=== PATIENT | female | born 1965 | race Caucasian/White ===

== ENCOUNTER 2023-11-17 11:32 | Outpatient (CLI) | payer OTHER, SELFPAY ==
--- NOTE | 2023-11-17 11:30 | CRLHL7_ITS ---
For Patients: As a result of the Century Cures Act, medical imaging exams and procedure reports are released immediately into your electronic medical record. You may view this report before your referring provider. If you have questions, please contact your health care provider. BILATERAL SCREENING MAMMOGRAM WITH COMPUTER-AIDED DETECTION AND TOMOSYNTHESIS TECHNIQUE: CC and MLO views were obtained. These mammographic images have been obtained using full-field digital technique. These mammographic images were interpreted with the benefit of computer-aided detection. Breast Tomosynthesis was used in this interpretation. COMPARISON FILM: 06/06/20, 06/01/18, 02/20/17. FINDINGS: The breasts are heterogeneously dense, which may obscure small masses IMPRESSION: There is no radiographic evidence for malignancy. ASSESSMENT: BI-RADS Category 1: Negative RECOMMENDATION: Routine screening mammogram in 1 year. A lay language report of this examination will be provided to the patient. Gilbert Houston M.D. Diagnostic Radiologist [email or web address] ELPIDIO/Dictated by: Gilbert Houston MD @ 11/25/2023 12:21:00 PM (Electronically Signed)
--- OUTSIDE RECORDS SUMMARY | 2023-11-17 11:35 | XMS_ITS | Encounter Summary ---
Author Organization [facility] Address [address] [place] [address] Care Team Providers Care Detention Deputy Name Role Phone Leigh Tuttle PA-C Primary Care Pr ovider Leigh Tuttle PA-C Unavailable Mino Galvez DO Unavailable [phone] Encounter Details Date Type Department Care Team (Late st Contact Info) Description 07/19/2022 [facility] [address] [place] [address] Arlette Saldivar Social History Tobacco Use Types Packs/Day Years Used Date Smoking Tobacco: Former Cigarettes 0.5 8 0 09/12/1989 - 09/12/1997 Smokeless Tobacco: Never Alcohol Use Standard Drinks/Week Comments Yes 0 (1 standard drink = 0.6 oz pur e alcohol) 7 drinks per week Social Connection and Isolat ion Panel [NHANES] Answer Date Recorded In a typical week, how many times do you talk on the phone with family, friends, or neighbors? More than three times a week 07/02/2022 How often do you get togethe r with friends or relatives? More than three times a week 07/02/2022 How often do you attend chur ch or protestant services? Never 07/02/2022 Do you belong to any clubs o r organizations such as jewish groups, unions, fraternal or athletic groups, or school groups? No 07/02/2022 Attends Club or Organization Meetings Not on vickey e 07/02/2022 Are you , , di vorced, , never , or living with a partner? 07/02/2022 AUDIT-C Answer Date Recorded Frequency of Alcohol Consumption Not on file 07/02/2022 Q2: How many drinks containi ng alcohol do you have on a typical day when you are drinking? 3 or 4 07/02/2022 Q3: How often do you have si x or more drinks on one occasion? Less than monthly 07/02/2022 Overall Financial Resource Strain (CARDIA) Answe r Date Recorded How hard is it for you to pa y for the very basics like food, housing, medical care, and heating? Not hard at all 07/02/2022 PHQ-2 Answer Date Recorded PHQ-2 Score 0 07/03/2022 [facility] - Occupational Stress Questionnaire Answer Date Recorded Do you feel stress - tense, restless, nervous, or anxious, or unable to sleep at night because your mind is troubled all the time - these days? To some extent 07/02/2022 Exercise Vital Sign Answer Date Recorde d Days of Exercise per Week Not on file 2022 On average, how many minutes do you engage in exercise at this level? 20 min 07/02/2022 Hunger Vital Sign Answer Date Recorded Within the past 12 months, y ou worried that your food would run out before you got the money to buy more. Never true 07/03/19 23 Ran Out of Food in the Last Year Not on file 07/02/2022 PRAPARE - Transportation Answer Date Re corded In the past 12 months, has l ack of transportation kept you from medical appointments or from getting medications? No 10/2022 In the past 12 months, has l ack of transportation kept you from meetings, work, or from getting things needed for daily living? No 07/02/2022 Housing Stability Vital Sign Answer Noe e Recorded In the last 12 months, was t here a time when you were not able to pay the mortgage or rent on time? No 07/02/2022 Number of Places Lived in the Last Year Not on f ile 07/02/2022 In the last 12 months, was t here a time when you did not have a steady place to sleep or slept in a retirement (including now)? No 07/02/2022 Sex and Gender Information Value Date Recorded Sex Assigned at Female 05/25/2021 9:19 AM CDT Gender Identity Female 05/25/2021 9:19 AM CDT Sexual Orientation Straight 05/25/2021 9: 19 AM CDT COVID-19 Exposure Response Date Recorded In the last 10 days, have yo u been in contact with someone who was confirmed or suspected to have Coronavirus/COVID-19? No / Unsure 07/15/2022 3:04 PM CDT documented as of this encounter Plan of Treatment Not on file documented as of this encounter Visit Diagnoses Not on filedocumented in this encounter Additional Health Concerns Assessment Noted Time PHQ-9 Depression Total Score: 0 02/11/20 17 10:14 AM CORPORATE COUNSELOR documented as of this encounter Care Teams Detention Deputy Relationship Specialty Start Date End Date Leigh Tuttle PA-C [address] [place] [address] PCP - General Physician Spool Maker 10/21/14 Leigh Tuttle PA-C [address] [place] [address] Assigned PCP 07/06/22 [place] [id number] ARLETTE WEEMS, [address] [address] Assigned Musculoskeletal Provider 10/17/23 documented as of this encounter
--- OUTSIDE RECORDS SUMMARY | 2023-11-17 11:35 | XMS_ITS | Encounter Summary ---
Author Organization [facility] Address [address] [place] [address] Care Team Providers Care Personnel Supervisor Name Role Phone Leigh Tuttle PA-C Primary Care Pr ovider Leigh Tuttle PA-C Unavailable Encounter Details Date Type Department Care Team (Latest Contact Info) Description 10/08/2023 Travel Social History Tobacco Use Types Packs/Day Years [...] often do you attend chur ch or pentecostalism services? Never 07/02/2022 Do you belong to any clubs o r organizations such as gnosticist groups, unions, fraternal or athletic groups, or [...] PHQ-2 Answer Date Recorded PHQ-2 Score 0 09/12/2023 [facility] [place] [facility] - Occupational Stress [...] place to sleep or slept in a fpc (including now)? No 07/02/2022 Adolescent Education Answer Date Record ed Getting School Help Needed Not on file 12/02 Interpersonal Safety Answer Date Record ed Do you feel physically and e motionally safe where you currently live? Yes 07/22/2023 Within the past 12 months, h ave you been hit, slapped, kicked or otherwise physically hurt by someone? No 07/22/2023 Within the past 12 months, h ave you been humiliated or emotionally abused in other ways by your partner or ex-partner? No 07/22/2023 Sex and Gender Information Value Date Recorded Sex Assigned at Female 05/25/2021 9:19 AM CDT Gender Identity Female 05/25/2021 9:19 AM CDT Sexual Orientation Straight 05/25/2021 9: 19 AM CDT documented as of this encounter Plan of Treatment Not on file documented as of this encounter Visit Diagnoses Not on filedocumented in this encounter Additional Health Concerns Assessment Noted Time PHQ-9 Depression Total Score: 0 09/11/19 24 9:12 AM CDT documented as of this encounter Care Teams Personnel Supervisor Relationship Specialty Start Date End Date Leigh Tuttle PA-C [address] [place] [address] PCP - General Physician Life Insurance Specialist 10/21/14 Leigh Tuttle PA-C [address] [place] [address] Assigned PCP 07/06/22 documented as of this encounter
--- OUTSIDE RECORDS SUMMARY | 2023-11-17 11:35 | XMS_ITS | Encounter Summary ---
Author Organization [facility] Address [address] [place] [address] Care Team Providers Care Woods Superintendent Name Role Phone Leigh Tuttle PA-C Primary Care Pr ovider Leigh Tuttle PA-C Unavailable Encounter Details Date Type Department Care Team (Latest Contact Info) Description 09/23/2023 Travel Social History Tobacco Use Types Packs/Day [...] often do you attend chur ch or baptist services? Never 07/02/2022 Do you belong to any clubs o r organizations such as yazdanism groups, unions, fraternal or athletic groups, or [...] Answer Date Recorded PHQ-2 Score 0 09/12/2023 [facility] [place] [facility] - Occupational Stress [...] place to sleep or slept in a half-way (including now)? No 07/02/2022 Adolescent Education Answer [...] documented as of this encounter Care Teams Woods Superintendent Relationship Specialty Start Date End Date Leigh Tuttle PA-C [address] [place] [address] PCP - General Physician Telegrapher Agent 10/21/14 Leigh Tuttle PA-C [address] [place] [address] Assigned PCP 07/06/22 documented as of this encounter
--- OUTSIDE RECORDS SUMMARY | 2023-11-17 11:35 | XMS_ITS | Encounter Summary ---
Author Organization [facility] Address [address] [place] [address] Care Team Providers Care Press Tender Short Goods Name Role Phone Leigh Tuttle PA-C Primary Care Pr ovider Leigh Tuttle PA-C Unavailable Encounter Details Date Type Department Care Team (Latest Contact Info) Description 10/15/2023 Travel Social History Tobacco Use Types Packs/Day [...] often do you attend chur ch or christian services? Never 07/02/2022 Do you belong to any clubs o r organizations such as mu-ism groups, unions, fraternal or athletic groups, or [...] Answer Date Recorded PHQ-2 Score 0 09/12/2023 [facility] [place] [facility] Occupat ional Health - Occupational Stress [...] place to sleep or slept in a nursing home (including now)? No 07/02/2022 Adolescent Education Answer [...] documented as of this encounter Care Teams Press Tender Short Goods Relationship Specialty Start Date End Date Leigh Tuttle PA-C [address] [place] [address] PCP - General Physician Fur Trimmer 10/21/14 Leigh Tuttle PA-C [address] [place] [address] Assigned PCP 07/06/22 documented as of this encounter
--- OUTSIDE RECORDS SUMMARY | 2023-11-17 11:35 | XMS_ITS | Encounter Summary ---
Author Organization [facility] Address [address] [place] [address] Care Team Providers Care Supervisor Keymodule Assembly Name Role Phone Leigh Tuttle PA-C Primary Care Pr ovider Leigh Tuttle PA-C Unavailable Reason for Visit * Rehab Therapy Physical Therapy (Routine: Next available opening) - Referral NOT Required Specialty Diagnoses / Procedures Referred By Johnny olea Referred To Contact Physical Therapy Diagnoses Primary osteoarthritis of right hip Femoroacetabular impingement of right hip [address] [address] Referral ID Status Reason Start Date Expiration Date V isits Requested Visits Authorized [id number] Referral NOT Required 10/07/2023 02/24/2024 365 365 Encounter Details Date Type Department Care Team (Latest Contact Info) Description 10/15/2023 11:20 AM CDT Therapy Visit [address] [place] [address] Zac Morris, PT [address] [id number] Primary osteoarthritis of right hip (Primary Dx); Femoroacetabular impingement of right hip Social History Tobacco Use Types Packs/Day Years [...] 07/02/2022 How often do you attend chur or tenriism services? Never 07/02/2022 Do you belong to any clubs o r organizations such as muslim groups, unions, fraternal or athletic groups, or [...] Answer Date Recorded PHQ-2 Score 0 09/12/2023 [facility] - Occupational [...] place to sleep or slept in a [facility] (including now)? No 07/02/2022 Adolescent Education Answer [...] documented as of this encounter Visit Diagnoses Diagnosis Primary osteoarthritis of right hip- Primary Primary localized osteoarthrosis, pelvic region and thigh Femoroacetabular impingement of right hip Enthesopathy of hip region documented in this encounter Additional Health Concerns Assessment Noted Time PHQ-9 Depression Total Score: 0 09/11/19 24 9:12 AM CDT documented as of this encounter Care Teams Supervisor Keymodule Assembly Relationship Specialty Start Date End Date Leigh Tuttle PA-C [address] [place] [address] PCP - General Physician Warehouse Receiver 10/21/14 Leigh Tuttle PA-C [address] [place] [address] Assigned PCP 07/06/22 documented as of this encounter
--- OUTSIDE RECORDS SUMMARY | 2023-11-17 11:35 | XMS_ITS | Referral Summary ---
Author Organization [facility] Address [address] [place] [address] Care Team Providers Care Cattle Dipper Name Role Phone Leigh Tuttle PA-C Primary Care Pr ovider Leigh Tuttle PA-C Unavailable Mino Galvez DO Unavailable [phone] Encounters Date Type Department Care Team Description 11/08/2023 Travel 11/08/2023 9:20 AM CDT Office Visit [address] [address] Ethel De Jesus MD Yeo, Albert, MD Primary osteoarthritis of right hip (Primary Dx); Hip pain, right; Femoroacetabular impingement of right hip 11/04/[address] [address] Adarsh Lopez MD Appt Scheduled 10/15/2023 Travel 10/15/2023 11:20 AM CDT Therapy Visit [facility] [address] [place] [address] Zac Morris, PT Primary osteoarthritis of right hip (Primary Dx); Femoroacetabular impingement of right hip 10/08/2023 Travel 10/08/2023 10:40 AM CDT Therapy Visit [facility] [place] [id number] [place] [address] [address] [place] [address] Zac Morris, PT Primary osteoarthritis of right hip; Femoroacetabular impingement of right hip 09/23/2023 Travel 09/23/2023 10:00 AM CDT Office Visit [facility] [place] [address] [facility] [address] [place] [address] Leigh Mondragon ra, PA-C Sheehan, Andrew, DO Primary osteoarthritis of right hip (Primary Dx); Femoroacetabular impingement of right hip 09/16/2023 MyC Medical Advice [address] [address] Leigh Mondragon ra, PA-C Hip pain, right (Primary Dx) 09/12/2023 11:20 AM CDT Ancillary Procedure [address] [address] Leigh Mondragon ra, PA-C Hip pain, right 09/12/2023 11:00 AM CDT Virtual Visit [address] [address] Leigh Mondragon ra, PA-C Hip pain, right (Primary Dx) from Last 3 Months Allergies Active Allergy Reactions Criticality Noted Date Comments Estradiol 11/08/2023 Medications Medication Sig Dispensed Refills Start Date End Date Status cyclobenzaprine (FLEXERIL) 5 MG tabletIndications:Hip pain, right Take 1 tablet (5 mg) by mouth 3 times daily as needed for muscle spasms 30 tablet 07/22/2023 Active Additional Information Patient not taking.Reported on 11/08/2023 progesterone (PROMETRIUM) 200 MG capsule Take 200 mg by mouth daily. 10/15/2023 Active thyroid (ARMOUR) 60 MG tablet Take 60 mg by mouth daily. Active estradiol (CLIMARA) 0.05 MG/24HR weekly patch Place 1 patch onto the skin once a week. Active diclofenac (VOLTAREN) 75 MG EC tabletIndications:Hip pain, right,Primary osteoarthritis of right hip,Femoroacetabular impingement of right hip Take 1 tablet (75 mg) by mouth 2 times daily as needed for moderate pain. 60 tablet 11/08/2023 Active Active Problems Problem Noted Date Diagnosed Date Primary osteoarthritis of right hip 10/08/2023 Femoroacetabular impingement of right hip 2023 Chronic right-sided low back pain without sciati ca 10/10/2022 Adhesive capsulitis of right shoulder 03/02/2018 Cervical radiculopathy 03/02/2018 Subclinical hypothyroidism 06/23/2015 Urinary incontinence 04/11/2010 Frequency of urination and polyuria 04/11/2010 Microscopic hematuria 04/11/2010 Recurrent HSV (herpes simplex virus) 08/24/2007 Resolved Problems Problem Noted Date Diagnosed Date Resolved Date CARDIOVASCULAR SCREENING; LD L GOAL LESS THAN 160 12/24/2009 06/04/2021 Immunizations Name Administration Dates Next Due COVID-19 MONOVALENT 12+ (Pfizer) 02/06/2021,05/26,05/19/2020 Hepatitis A (ADULT 19+) 03/10/2012 Hepatitis B, Adult 03/10/2012 Influenza (IIV3) PF 11/13/2009 Influenza, seasonal, injectable, PF 03/10/2012 TDAP (Adacel,Boostrix) 02/25/2012,05/08/2010 Social History Tobacco Use Types Packs/Day Years Used Date Smoking Tobacco: Former Cigarettes 0.5 8 0 09/12/1989 - 09/12/1997 Smokeless Tobacco: Never Tobacco Cessation:Counseling Given: Yes Alcohol Use Standard Drinks/Week Comments Yes 0 [...] week 07/02/2022 How often do you attend [facility] or hoahaoism services? Never 07/02/2022 Do you belong to any clubs o r organizations such as orthodox groups, unions, fraternal or athletic groups, or [...] Answer Date Recorded PHQ-2 Score 0 09/12/2023 [facility] - Occupational Stress Questionnaire Answer Date Recorded [...] place to sleep or slept in a penitentiary (including now)? No 07/02/2022 Adolescent Education Answer [...] Orientation Straight 05/25/2021 9: 19 AM CDT Last Filed Vital Signs Vital Sign Reading Time Taken Comments Blood Pressure 114/78 11/08/2023 9:06 AM CDT Pulse 72 07/22/2023 10:46 AM CDT Temperature 36.6 ??C (97.8 ??F) 07/22/2023 10:46 AM C DT Respiratory Rate 18 07/22/2023 10:46 AM CDT Oxygen Saturation 99% 07/22/2023 10:46 AM CDT Inhaled Oxygen Concentration - - Weight 64.4 kg (142 lb) 11/08/2023 9:06 AM CDT Height 170.2 cm (5' 7) 11/08/2023 9:06 AM CDT Body Mass Index 22.24 11/08/2023 9:06 AM CDT Plan of Treatment Not on file Procedures Procedure Name Priority Date/Time Associated Diagnosis Comments AK ARTHROCENTESIS ASPIR&/INJ MAJOR JT/BURSA W/US Routine 09/23/2023 10:34 AM CDT Primary osteoarthritis of right hip Femoroacetabular impingement of right hip XR PELVIS AND HIP BILATERAL 2 VIEWS Routine 09/12/2023 11:24 AM CDT Hip pain, right COLONOSCOPY Routine 10/02/2022 12:28 PM CDT COMPREHENSIVE METABOLIC PANEL Routine 07/03/2022 11:48 AM CDT Screening for diabetes mellitus HEPATITIS C SCREEN REFLEX TO HCV RNA QUANT AND GENOTYPE Routine 07/03/2022 11:48 AM CDT Need for hepatitis C screening test TSH WITH FREE T4 REFLEX Routine 07/03/2022 11:48 AM CDT Screening for thyroid disorder LIPID PROFILE Routine 07/03/2022 11:48 AM CDT Screening, lipid MA SCREENING BILATERAL W/ ARNALDO Routine 05/27/2022 11:47 AM CDT Visit for screening mammogram HIV ANTIGEN ANTIBODY COMBO Routine 07/28/2017 8:53 AM CDT Screening for HIV (human immunodeficiency virus) PAP IMAGED THIN LAYER SCREEN Routine 02/10/2017 10:35 AM GOLDBEATER Encounter for gynecological examination without abnormal finding HPV HIGH RISK TYPES DNA CERVICAL Routine 02/10/2017 10:30 AM GOLDBEATER Encounter for gynecological examination without abnormal finding from Last 3 Months or Most Recently Relevant to Health Maintenance Results * AK ARTHROCENTESIS ASPIR&/INJ MAJOR JT/BURSA W/US (09/23/2023 10:34 AM CDT) Narrative Mino Galvez DO - 09/23/2023 10:34 AM CDT Mino Galvez DO ? 09/23/2023 12:55 PM Large Joint Injection/Arthocentesis: R hip joint Date/Time: 09/23/2023 10:34 AM Performed by: Mino Galvez DO Authorized by: Mino Galvez DO ?? Indications: ??Pain and osteoarthritis Needle Size: ??22 G Guidance: ultrasound ?? Approach: ??Anterior Location: ??Hip Site: ??R hip joint Medications: ??6 mg betamethasone acet & sod phos 6 (3-3) MG/ML; 5 mL lidocaine 1 %; 2 mL ROPivacaine 5 MG/ML Medications comment: ??1ml of 8.4% Sodium Bicarbonate solution was used to buffer the local numbing agent for today's injection Outcome: ??Tolerated well, no immediate complications Procedure discussed: discussed risks, benefits, and alternatives ?? Consent Given by: ??Patient Timeout: timeout called immediately prior to procedure ?? Prep: patient was prepped and draped in usual sterile fashion ?? Ultrasound was used to ensure safe and accurate needle placement and injection. Ultrasound images of the procedure were permanently stored. Mino Galvez DO PROCEDURE/MINOR SURG ICAL ORDERABLES * XR Pelvis and Hip Bilateral 2 Views (09/12/2023 11:24 AM CDT) Anatomical Region Laterality Modality Hip, Abdomen/Pelvis Bilateral Computed Rad iography Impressions 09/12/2023 12:49 PM CDT IMPRESSION: Anatomic alignment of each hip. No acute displaced hip fracture. Mild bilateral hip joint space narrowing. No acute displaced pelvic fracture. Transitional lumbosacral segment. Degenerative changes lower lumbar spine. JOEY AMBROCIO MD SYSTEM ID: ??[id number] Narrative 09/12/2023 12:49 PM CDT PELVIS AND HIP BILATERAL 2 VIEWS DATE/TIME: 09/12/2023 11:24 AM INDICATION: Hip pain. COMPARISON: None available. Procedure Note Joey Ambrocio MD - 09/12/2023 PELVIS AND HIP BILATERAL 2 VIEWS DATE/TIME: 09/12/2023 11:24 AM INDICATION: Hip pain. COMPARISON: None available. IMPRESSION: Anatomic alignment of each hip. No acute displaced hip fracture. Mild bilateral hip joint space narrowing. No acute displaced pelvic fracture. Transitional lumbosacral segment. Degenerative changes lower lumbar spine. JOEY AMBROCIO MD SYSTEM ID: [id number] Leigh Tuttle PA-C IMG DIAG NOSTIC IMAGING ORDERABLES * COLONOSCOPY (10/02/2022 12:28 PM CDT) [facility] Patient Name: Chandrika Hoffmann ?Procedure Date: 10/02/2022 12:28 PM ? Date of : 1965 ? Admit Type: Outpatient Age: 57 ? Gender: Female Attending MD: NANCY ORTEGA MD, ??Total Sedation Time: 16_minutes continuous bedside 1:1 Instrument Name: 224 - Adult Colonoscope Procedure: ?Colonoscopy Indications: ?Screening for colorectal malignant neoplasm Providers: ?NANCY ORTEGA MD (Doctor) Referring MD: ? GAETANO MCCAULEY (Referring MD) Medicines: ?Midazolam 3 mg IV, Fentanyl 150 micrograms IV, ?Ondansetron 4 mg IV Complications: ?No immediate complications. Procedure: ?Pre-Anesthesia Assessment: ?- Prior to the procedure, a History and Physical ?was performed, and patient medications and ?allergies were reviewed. The patient is competent. ?The risks and benefits of the procedure and the ?sedation options and risks were discussed with the ?patient. All questions were answered and informed ?consent was obtained. Patient identification and ?proposed procedure were verified by the physician ?in the procedure room. Mental Status Examination: ?alert and oriented. CV Examination: normal. ?Prophylactic Antibiotics: The patient does not ?require prophylactic antibiotics. Prior ?Anticoagulants: The patient has taken no ?anticoagulant or antiplatelet agents. ASA Grade ?Assessment: II - A patient with mild systemic ?disease. After reviewing the risks and benefits, ?the patient was deemed in satisfactory condition to ?undergo the procedure. The anesthesia plan was to ?use moderate sedation / analgesia (conscious ?sedation). Immediately prior to administration of ?medications, the patient was re-assessed for ?adequacy to receive sedatives. The heart rate, ?respiratory rate, oxygen saturations, blood ?pressure, adequacy of pulmonary ventilation, and ?response to care were monitored throughout the ?procedure. The physical status of the patient was ?re-assessed after the procedure. ?After obtaining informed consent, the colonoscope ?was passed under direct vision. Throughout the ?procedure, the patient's blood pressure, pulse, and ?oxygen saturations were monitored continuously. The ?Olympus Adult Colonoscope, Model # CF-YN597M, ?[place] # 224, SN # [id number] was introduced through ?the anus and advanced to the cecum, identified by ?appendiceal orifice and ileocecal valve. The ?colonoscopy was performed without difficulty. The ?patient tolerated the procedure well. The quality ?of the bowel preparation was good. The ileocecal ?valve, appendiceal orifice, and rectum were ?photographed. ? Findings: ? The perianal and digital rectal examinations were normal. ? A single medium-mouthed diverticulum was found in the mid ascending ? colon. ? The exam was otherwise without abnormality on direct and retroflexion ? views. ? Impression: ? - Diverticulosis in the mid ascending colon. ?- The examination was otherwise normal on direct ?and retroflexion views. ?- No specimens collected. Recommendation: ? - Repeat colonoscopy in 10 years for screening ?purposes. ? Procedure Code(s): ? --- Professional --- ? G0121, Colorectal cancer screening; colonoscopy on individual not ? meeting criteria for high risk Diagnosis Code(s): ? --- Professional --- ? Z12.11, Encounter for screening for malignant neoplasm of colon CPT copyright 2021 [employer]. All rights reserved. The codes documented in this report are preliminary and upon director digital marketing review may be revised to meet current compliance requirements. Electronically signed by Nancy Ortega MD __ NANCY ORTEGA MD 10/02/2022 1:22:54 PM I was physically present for the entire viewing portion of the exam. NANCY ORTEGA MD Number of Addenda: 0 Note Initiated On: 10/02/2022 12:28 PM MRN: ?[id number] Procedure Date: ? 10/02/2022 12:28:27 PM Scope Withdrawal Time: 0 hours 6 minutes 24 seconds Total Procedure Duration: 0 hours 15 minutes 34 seconds Estimated Blood Loss: ? Scope In: 12:54:52 PM Scope Out: 1:10:26 PM RADIOLOGY RESULTS 10/02/2022 12:2 8 PM CDT Leigh Tuttle PA-C PROCEDUR ES RADIOLOGY RESULTS * Hepatitis C Screen Reflex to HCV RNA Quant and Genotype (07/03/2022 11:48 AM CDT) Hepatitis C Antibody Nonreactive Nonreactive 07/04/2022 2:37 PM CDT SPECIALTY CORE/PROT/EN DO Blood BLOOD SPECIMEN / Unknown Venipuncture / Unknown 07/03/2022 11:48 AM CDT 07/03/2022 11:48 AM CDT Narrative SPECIALTY CORE/PROT/ENDO - 07/04/2022 2:37 PM CDT Assay performance characteristics have not been established for newborns, infants, and children. Leigh Tuttle PA-C LAB - BL OOD ORDERABLES SPECIALTY CORE/PROT/ENDO Specialty Core/Prot/Endo [address] [facility], [address] [phone] * TSH with free T4 reflex (07/03/2022 11:48 AM CDT) TSH 1.95 0.30 - 4.20 uIU/mL 07/03/2022 9:17 PM CDT [facility] Blood BLOOD SPECIMEN / Unknown Venipuncture / Unknown 07/03/2022 11:48 AM CDT 07/03/2022 11:48 AM CDT Leigh Tuttle PA-C LAB - BL OOD ORDERABLES [facility] [place] [facility] [address] [facility], [address] [id number] [phone] * (ABNORMAL) Lipid Profile (07/03/2022 11:48 AM CDT) Cholesterol 233(H) <200 mg/dL 07/03/2022 7:27 PM CDT [facility] Triglycerides 74 <150 mg/dL 07/03/2022 7:27 PM CDT [facility] Direct Measure HDL 84 >=50 mg/dL 07/03/2022 7:27 PM CDT [facility] LDL Cholesterol Calculated 134(H) <=100 mg/dL 07/03/2022 7:27 PM CDT [facility] Non HDL Cholesterol 149(H) <130 mg/dL 07/03/2022 7:27 PM CDT [facility] Blood BLOOD SPECIMEN / Unknown Venipuncture / Unknown 07/03/2022 11:48 AM CDT 07/03/2022 11:48 AM CDT Narrative [facility] - 07/03/2022 7:27 PM CDT Cholesterol Desirable: ??<200 mg/dL Triglycerides Normal: ??Less than 150 mg/dL Borderline High: ??150-199 mg/dL High: ??200-499 mg/dL Very High: ??Greater than or equal to 500 mg/dL Direct Measure HDL Female: ??Greater than or equal to 50 mg/dL Male: ??Greater than or equal to 40 mg/dL LDL Cholesterol Desirable: ??<100mg/dL Above Desirable: ??100-129 mg/dL Borderline High: ??130-159 mg/dL High: ??160-189 mg/dL Very High: ??>= 190 mg/dL Non HDL Cholesterol Desirable: ??130 mg/dL Above Desirable: ??130-159 mg/dL Borderline High: ??160-189 mg/dL High: ??190-219 mg/dL Very High: ??Greater than or equal to 220 mg/dL Leigh Tuttle PA-C LAB - BL OOD ORDERABLES [facility] Lab [address] [facility], [address] [id number] [phone] * (ABNORMAL) Comprehensive metabolic panel (07/03/2022 11:48 AM CDT) Sodium 141 136 - 145 mmol/L 07/03/2022 7:27 PM CDT [facility] Potassium 4.2 3.4 - 5.3 mmol/L 07/03/2022 7:27 PM CDT [facility] Chloride 103 98 - 107 mmol/L 07/03/2022 7:27 PM CDT [facility] Carbon Dioxide (CO2) 28 22 - 29 mmol/L 07/03/2022 7:27 PM CDT [facility] Anion Gap 10 7 - 15 mmol/L 07/03/2022 7:27 PM CDT [facility] Urea Nitrogen 13.8 6.0 - 20.0 mg/dL 07/03/2022 7:27 PM CDT [facility] Creatinine 0.83 0.51 - 0.95 mg/dL 07/03/2022 7:27 PM CDT [facility] Calcium 9.6 8.6 - 10.0 mg/dL 07/03/2022 7:27 PM CDT [facility] Glucose 93 70 - 99 mg/dL 07/03/2022 7:27 PM CDT [facility] Alkaline Phosphatase 52 35 - 104 U/L 07/03/2022 7:27 PM CDT [facility] AST 33 10 - 35 U/L 07/03/2022 7:27 PM CDT [facility] ALT 38(H) 10 - 35 U/L 07/03/2022 7:27 PM CDT [facility] Protein Total 7.3 6.4 - 8.3 g/dL 07/03/2022 7:27 PM CDT [facility] Albumin 4.6 3.5 - 5.2 g/dL 07/03/2022 7:27 PM CDT [facility] Bilirubin Total 0.6 <=1.2 mg/dL 07/03/2022 7:27 PM CDT [facility] GFR Estimate 82 >60 mL/min/1.7 3m2 07/03/2022 7:27 PM CDT [facility] Comment:eGFR calculated usin 2020 CKD-EPI equation. Blood BLOOD SPECIMEN / Unknown Venipuncture / Unknown 07/03/2022 11:48 AM CDT 07/03/2022 11:48 AM CDT Leigh Tuttle PA-C LAB - BL OOD ORDERABLES [facility] Core Lab [address] [facility], [address] [id number] [phone] * MA Screening Bilateral w/ Arnaldo (05/27/2022 11:47 AM CDT) Anatomical Region Laterality Modality Breast Bilateral Mammography Impressions 05/28/2022 11:21 AM CDT IMPRESSION: ACR BI-RADS Category 1: Negative RECOMMENDED FOLLOW-UP: Annual routine screening mammogram The results and recommendations of this examination will be communicated to the patient. Hilario Bey Narrative 05/28/2022 11:21 AM CDT BILATERAL FULL FIELD DIGITAL SCREENING MAMMOGRAM WITH TOMOSYNTHESIS Performed on: 05/27/22 Compared to: 06/01/2018, 02/20/2017, and 12/18/2015 Technique: ??This study was evaluated with the assistance of Computer-Aided Detection. ??Breast Tomosynthesis was used in interpretation. Findings: The breasts are heterogeneously dense, which may obscure small masses. ??There is no radiographic evidence of malignancy. Leigh Tuttle PA-C IMG MAMM OGRAPHY ORDERABLES * HIV Screening (07/28/2017 8:53 AM CDT) HIV Antigen Antibody Combo Nonreactive NR^Nonrea ctive 07/28/2017 8:[address] [facility] Comment:HIV-1 p24 Ag & HIV-1 /HIV-2 Ab Not Detected Blood specimen (specimen) 07/28/2017 8:53 AM CDT 07/28/2017 8:54 AM CDT Leigh Tuttle PA-C LAB - BL OOD ORDERABLES Performing Organization Address City/State/[facility] Co de Phone Number [address] [address] * Pap imaged thin layer screen with HPV - recommended age 30 - 65 (02/10/2017 10:35 AM GOLDBEATER) PAP MELVIN Rubin Report Patient Name: CHANDRIKA HOFFMANN MR#: [id number] Specimen #: [id number] Collected: 02/10/2017 Received: 02/11/2017 Reported: 02/12/2017 10:12 Ordering Phy(s): STORMY GUERRERO For improved result formatting, select 'View Enhanced Report Format' under Linked Documents section. SPECIMEN/STAIN PROCESS: Pap imaged thin layer prep screening (Surepath, FocalPoint with guided screening) ? Pap-Cyto x 1, HPV ordered x 1 SOURCE: Cervical, endocervical Pap imaged thin layer prep screening (Surepath, FocalPoint with guided screening) SPECIMEN ADEQUACY: Satisfactory for evaluation. -Transformation zone component absent. CYTOLOGIC INTERPRETATION: Negative for intraepithelial lesion or malignancy Electronically signed out by: FELIPE Jaeger (ASCP) Processed and screened at [facility], [facility] CLINICAL HISTORY: Currently not having periods Irregular periods, Previous normal pap Date of Last Pap: 12/28/12, Papanicolaou Test Limitations: ??Cervical cytology is a screening test with limited sensitivity; regular screening is critical for cancer prevention; Pap tests are primarily effective for the diagnosis/preventi on of squamous cell carcinoma, not adenocarcinomas or other cancers. TESTING LAB LOCATION: [address] ??[phone] COLLECTION SITE: Client: [facility] Location: [facility] Cytologic material (specimen) 02/10/2017 10:35 AM GOLDBEATER 02/11/2017 9:11 AM GOLDBEATER Stormy Guerrero DO LAB - [facility] L SPECIMEN COPATH * HPV High Risk Types DNA Cervical (02/10/2017 10:30 AM GOLDBEATER) HPV 16 DNA Negative NEG^Nega tive 02/14/2017 7:[address] [facility] HPV 18 DNA Negative NEG^Nega tive 02/14/2017 7:[address] [facility] Other HR HPV Negative NEG^Nega tive 02/14/2017 7:[address] [facility] Final Diagnosis This patient's sample is negative for HPV DNA. 02/14/2017 7:[address] [facility] Comment: (Note) METHODOLOGY: ??The Dao agata 4800 system uses automated extraction, simultaneous amplification of HPV (L1 region) and beta-globin, ?? followed by ??real time detection of fluorescent labeled HPV and beta globin using specific oligonucleotide probes . The test specifically identifies types HPV 16 DNA and HPV 18 DNA while concurrently detecting the rest of the high risk types (31, 33, 35, 39, 45, 51, 52, 56, 58, 59, 66 or 68). COMMENTS: ??This test is not intended for use as a screening device for women under age 30 with normal cervical cytology. ??Results should be correlated with cytologic and histologic findings. Close clinical followup is recommended. This test was developed and its performance characteristics determined by the [facility], [facility]. It has not been cleared or approved by the FDA. The laboratory is regulated under CLIA as qualified to perform high-complexity testing. This test is used for clinical purposes. It should not be regarded as investigational or for research. Specimen Description Cervical Cells 02/13/2017 9:[address] [facility] Comment:[id number] Cervical Cells 02/10/2017 10 :30 AM GOLDBEATER 02/10/2017 11:33 AM GOLDBEATER Stormy Guerrero DO LAB - BLOOD ORDERABL ES [facility] [address] [place] [address] from Last 3 Months or Most Recently Relevant to Health Maintenance Care Teams Cattle Dipper Relationship Specialty Start Date End Date Leigh Tuttle PA-C [address] [place] [address] PCP - General Physician Ocularist 10/21/14 Leigh Tuttle PA-C [address] [place] [address] Assigned PCP 07/06/22 [place] [address] [address], [address] [address] Assigned Musculoskeletal Provider 10/17/23
--- OUTSIDE RECORDS SUMMARY | 2023-11-17 11:35 | XMS_ITS | Encounter Summary ---
Author Organization [facility] Address [address] [place] [address] Care Team Providers Care Quality Control Name Role Phone Leigh Tuttle PA-C Primary Care Pr ovider Leigh Tuttle PA-C Unavailable Mino Galvez DO Unavailable [phone] Encounter Details Date Type Department Care Team (Late st Contact Info) Description 10/08/2022 MyC Medical Advice [facility] Women's [address] [place] [phone] Debby Alonso Social History Tobacco Use Types Packs/Day Years [...] How often do you attend chur or zoroastrian services? Never 07/02/2022 Do you belong to any clubs o r organizations such as pentecostalism groups, unions, fraternal or athletic groups, or [...] Answer Date Recorded PHQ-2 Score 0 07/03/2022 [facility] - Occupational [...] place to sleep or slept in a prison (including now)? No 07/02/2022 Sex and Gender Information Value Date Recorded Sex Assigned at Female 05/25/2021 9:19 AM CDT Gender Identity Female 05/25/2021 9:19 AM CDT Sexual Orientation Straight 05/25/2021 9: 19 AM CDT COVID-19 Exposure Response Date Recorded In the last 10 days, have yo u been in contact with someone who was confirmed or suspected to have Coronavirus/COVID-19? No / Unsure 10/10/2022 10:01 AM CDT documented as of this encounter Plan of Treatment Not on file documented as of this encounter Visit Diagnoses Not on filedocumented in this encounter Additional Health Concerns Assessment Noted Time PHQ-9 Depression Total Score: 0 02/11/20 17 10:14 AM BOTTLE TESTER documented as of this encounter Care Teams Quality Control Relationship Specialty Start Date End Date Leigh Tuttle [place]-C [address] [place] [address] PCP - General Physician Assembler Metal Building 10/21/14 Leigh Tuttle PA-C [address] [place] [address] Assigned PCP 07/06/22 [place] [address] [address], [address] [address] Assigned Musculoskeletal Provider 10/17/23 documented as of this encounter
--- OUTSIDE RECORDS SUMMARY | 2023-11-17 11:35 | XMS_ITS | Encounter Summary ---
Author Organization [facility] Address [address] [place] [address] Care Team Providers Care Senior Financial Analyst Name Role Phone Leigh Tuttle PA-C Primary Care Pr ovider Leigh Tuttle PA-C Unavailable Mino Galvez DO Unavailable [phone] Reason for Visit * Reason Comments Pain * Consultation (Priority: 1-2 Weeks) - Pending Review Specialty Diagnoses / Procedures Referred By Johnny olea Referred To Contact Diagnoses Hip pain, right Ethel De Jesus MD [address] [place] [address] Referral ID Status Reason Start Date Expiration Date V isits Requested Visits Authorized [id number] Pending Review 07/22/2023 07/21/2024 1 1 Encounter Details Date Type Department Care Team (Late st Contact Info) Description 11/08/2023 9:20 AM CDT Office Visit [facility] [place] [address] [facility] [address] [place] [address] Ethel De Jesus MD [address] [place] [address] [place] [id number] [facility] [address] [place], [place] [id number] Primary osteoarthritis of right hip (Primary Dx); Hip pain, right; Femoroacetabular impingement of right hip Social History [...] How often do you attend chur or advent services? Never 07/02/2022 Do you belong to any clubs o r organizations such as moravian groups, unions, fraternal or athletic groups, or [...] Answer Date Recorded PHQ-2 Score 0 09/12/2023 [facility] of Occupat ional Health - Occupational Stress [...] place to sleep or slept in a halfway (including now)? No 07/02/2022 Adolescent Education Answer [...] AM CDT documented as of this encounter Last Filed Vital Signs Vital Sign Reading Time Taken Comments Blood Pressure 114/78 11/08/2023 9:06 AM CDT Pulse - - Temperature - - Respiratory Rate - - Oxygen Saturation - - Inhaled Oxygen Concentration - - Weight 64.4 kg (142 lb) 11/08/2023 9:06 AM CDT Height 170.2 cm (5' 7) 11/08/2023 9:06 AM CDT Body Mass Index 22.24 11/08/2023 9:06 AM CDT documented in this encounter Patient Instructions * Patient Instructions* Adarsh Lopez MD - 11/08/2023 9:20 AM CDT 1. Primary osteoarthritis of right hip 2. Hip pain, right 3. Femoroacetabular impingement of right hip -Patient is following up for acute right hip pain due to arthritis -Patient reports only 1 month of relief from her recent right hip intra- articular cortisone injection with Dr. 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 -Patient's persistent right hip pain may also be rating from the lumbar spine. Patient was advised to ask her back doctor if her injuries in the back may be contributing to her right hip pain. -Patient will start diclofenac 75 mg twice daily for pain and inflammation. Patient will discontinue ibuprofen. Patient may also take extra strength Tylenol for breakthrough pain -If her back is not contributing to her right hip pain, and diclofenac and Tylenol are not adequately controlling her pain to allow her to work and perform her physical therapy, she may call us for an MRI order for the right hip. -Call direct clinic number [[phone]] at any time with questions or concerns. Adarsh Lopez MD [facility] documented in this encounter Progress Notes * Adarsh Lopez MD - 11/08/2023 9:20 AM CDT ASSESSMENT & PLAN Patient Instructions 1. Primary osteoarthritis of right hip 2. Hip pain, right 3. Femoroacetabular impingement of right hip -Patient is following up for acute right hip pain due to arthritis -Patient reports only 1 month of relief from her recent right hip intra- articular cortisone injection with Dr. 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 -Patient's persistent right hip pain may also be rating from the lumbar spine. Patient was advised to ask her back doctor if her injuries in the back may be contributing to her right hip pain. -Patient will start diclofenac 75 mg twice daily for pain and inflammation. Patient will discontinue ibuprofen. Patient may also take extra strength Tylenol for breakthrough pain -If her back is not contributing to her right hip pain, and diclofenac and Tylenol are not adequately controlling her pain to allow her to work and perform her physical therapy, she may call us for an MRI order for the right hip. -Call direct clinic number [[phone]] at any time with questions or concerns. Adarsh Lopez MD [facility] ----- SUBJECTIVE: Chandrika Hoffmann is a 58 year old female who is seen in follow-up for right hip pain. They were last seen by Dr. Galvez on 09/23/23. Since their last visit reports worsening pain. Pain is located in right anterior hip. Patient stillreports pain worsens with sitting, walking, bending, lowering leg after its lifted (random movements). They indicate that their current pain level is 7/10. They have tried rest/activity avoidance, physical therapy (2 visits), home exercises, previous imaging (xray 09/12/23), corticosteroid injectionright intra articular hip (most recent date: 09/23/23) that provided 1 month(s) of relief, and ibuprofen. The patient is seen by themselves. Patient's past medical, surgical, social, and family histories were reviewed today and no changes are noted. REVIEW OF SYSTEMS: Constitutional: NEGATIVE for fever, chills, change in weight Skin: NEGATIVE for worrisome rashes, moles or lesions GI/: NEGATIVE for bowel or bladder changes Neuro: NEGATIVE for weakness, dizziness or paresthesias OBJECTIVE: BP 114/78 Ht 1.702 m (5' 7) Wt 64.4 kg (142 lb) LMP 12/17/2012 BMI 22.24 kg/m?? General: healthy, alert and in no distress HEENT: no scleral icterus or conjunctival erythema Skin: no suspicious lesions or rash. No jaundice. CV: regular rhythm by palpation, no pedal edema Resp: normal respiratory effort without conversational dyspnea Psych: normal mood and affect Gait: normal steady gait with appropriate coordination and balance Neuro: normal light touch sensory exam of the extremities. MSK: RIGHT HIP Inspection: No swelling, bruising, discoloration, or obvious deformity or asymmetry Palpation: Tender about the anterior groin/joint line. Otherwise all other landmarks are nontender. Crepitus is Absent Active Range of Motion: Flexion within normal limits, extension within normal limits / IR within normal limits / ER within normal limits Strength: Flexion grossly intact / extension grossly intact / adduction grossly intact / abduction grossly intact Special Tests: Positive: anterior impingement (FADIR), posterior impingement (EX/AB/ER) Negative: Logroll, resisted gluteus medius provocation, SHARON Independent visualization of the below image: Results for orders placed or performed in visit on 09/12/23 XR Pelvis and Hip Bilateral 2 Views Narrative PELVIS AND HIP BILATERAL 2 VIEWS DATE/TIME: 09/12/2023 11:24 AM INDICATION: Hip pain. COMPARISON: None available. Impression IMPRESSION: Anatomic alignment of each hip. No acute displaced hip fracture. Mild bilateral hip joint space narrowing. No acute displaced pelvic fracture. Transitional lumbosacral segment. Degenerative changes lower lumbar spine. JOEY VOGEL MD SYSTEM ID: [id number] Adarsh Lopez MD, [facility] documented in this encounter Plan of Treatment Not on file documented as of this encounter Visit Diagnoses Diagnosis Primary osteoarthritis of right hip- Primary Primary localized osteoarthrosis, pelvic region and thigh Hip pain, right Pain in joint, pelvic region and thigh Femoroacetabular impingement of right hip Enthesopathy of hip region documented in this encounter Additional Health Concerns Assessment Noted Time PHQ-9 Depression Total Score: 0 09/11/19 9:12 AM CDT documented as of this encounter Care Teams Senior Financial Analyst Relationship Specialty Start Date End Date Leigh Tuttle PA-C [address] [place] [address] PCP - General Physician Qa Auditor 10/21/14 Leigh Tuttle PA-C [address] [place] [address] Assigned PCP 07/06/22 [place] [address] [address] [place], [address] [address] Assigned Musculoskeletal Provider 10/17/23 documented as of this encounter
--- OUTSIDE RECORDS SUMMARY | 2023-11-17 11:35 | XMS_ITS | Encounter Summary ---
Author Organization [facility] Address [address] [place] [address] Care Team Providers Care Glue Mill Operator Name Role Phone Leigh Tuttle PA-C Primary Care Pr ovider Leigh Tuttle PA-C Unavailable Reason for Visit * Rehab Therapy Physical Therapy (Routine: Next available opening) - Referral NOT Required Specialty Diagnoses / Procedures Referred By Johnny olea Referred To Contact Physical Therapy Diagnoses Primary osteoarthritis of right hip Femoroacetabular impingement of right hip [address] [address] Referral ID Status Reason Start Date Expiration Date V isits Requested Visits Authorized [id number] Referral NOT Required 10/07/2023 02/24/2024 365 365 Encounter Details Date Type Department Care Team (Latest Contact Info) Description 10/08/2023 10:40 AM CDT Therapy Visit [address] [place] [address] Zac Morris, PT [address] [id number] Primary osteoarthritis of right hip; Femoroacetabular impingement of right hip Social History [...] How often do you attend chur or shinto services? Never 07/02/2022 Do you belong to any clubs o r organizations such as zoroastrianism groups, unions, fraternal or athletic groups, or [...] Answer Date Recorded PHQ-2 Score 0 09/12/2023 [facility] of Occupat ional Health - Occupational Stress [...] place to sleep or slept in a chcf (including now)? No 07/02/2022 Adolescent Education Answer [...] AM CDT documented as of this encounter Progress Notes * Zac Morris, PT - 10/08/2023 10:40 AM CDT PHYSICAL THERAPY EVALUATION Type of Visit: Evaluation Fall Risk Screen: Fall screen completed by: PT Have you fallen 2 or more times in the past year?: No Have you fallen and had an injury in the past year?: No Is patient a fall risk?: No Subjective Pt c/o R hip/groin pain x 1+ year worsening over past few months. Denies injury. Was seen aprox 1 year ago in PT for R sided LBP (different than current pain)that she continues to have. Pt states sheis scheduled for an MRI of Lx spine in near future.. MD order date 09/23/2023. Pt also had R hip cortisone injection on that date with significant improvement noted. X rays: Anatomic alignment of each hip. No acute displaced hip fracture. Mild bilateral hip joint space narrowing. No acute displaced pelvic fracture. Transitional lumbosacral segment. Degenerative changes lower lumbar spine Presenting condition or subjective complaint: hip Date of onset: 09/23/23 (MD order date) Relevant medical history: Dates & types of surgery: none Prior diagnostic imaging/testing results: X-ray Prior therapy history for the same diagnosis, illness or injury: Prior Level of Function Transfers: Independent Ambulation: Independent ADL: Independent IADL: Driving, Finances, Housekeeping, Laundry, Meal preparation, Medication management, Work Living Environment Social support: With a significant other or spouse Type of home: House Stairs to enter the home: Ramp: No Stairs inside the home: Yes 13 Is there a railing: Yes Help at home: None Equipment owned: 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 Hobbies/Interests: Patient goals for therapy: sit&sleep Pain assessment: Pain present Objective HIP EVALUATION PAIN: Pain Level at Rest: 1/10 Pain Level with Use: 3/10 Pain Location: hip and initially groin but since injection more lateral hip vs groin Pain Quality: Aching Pain Frequency: intermittent Pain is Worst: daytime or nighttime Pain is Exacerbated By: sitting, sleeping, bend/squat, lifting Pain is Relieved By: rest Pain Progression: Improved INTEGUMENTARY (edema, incisions): WFL POSTURE: WFL GAIT: Weightbearing Status: WBAT Assistive Device(s): None Gait Deviations: WNL BALANCE/PROPRIOCEPTION: Single Leg Stance Eyes Open (seconds): 20-25 sec L, 15- 20 sec with increased mm activity WEIGHTBEARING ALIGNMENT: WFL NON-WEIGHTBEARING ALIGNMENT: ROM: (Degrees) Left AROM Left PROM Right AROM Right PROM Hip Flexion Hip Extension Hip Abduction Hip Adduction Hip Internal Rotation Hip External Rotation Knee Flexion Knee Extension Lumbar Side glide Lumbar Flexion Lumbar Extension Lx ROM and B hip WFL, mild R hip pain with end range IR Pain: End feel: PELVIC/SI SCREEN: WFL STRENGTH: Fair core stab recruitment, R hip ext 4+/5, abd 4/5, glute med 4-/5 LE FLEXIBILITY: WFL SPECIAL TESTS: (-) SHARON, FADIR, scouring R hip FUNCTIONAL TESTS: Double Leg Squat: Anterior knee translation, Knee valgus, Hip internal rotation, and Improper use of glutes/hips PALPATION: mild TTP R glute med/bursa JOINT MOBILITY: WFL Assessment & Plan CLINICAL IMPRESSIONS Medical Diagnosis: Femoroacetabular impingement of right hip, Primary osteoarthritis of right hip Treatment Diagnosis: R hip pain Impression/Assessment: Patient is a 58 year old female with R hip pain complaints. The following significant findings have been identified: Pain, Decreased ROM/flexibility, Decreased strength, Decreased proprioception, Impaired muscle performance, Decreased activity tolerance, and Impaired posture. These impairments interfere with their ability to perform self care tasks, work tasks, recreationalactivities, civil engineering intern, driving , household mobility, and community mobility as compared to previous level of function. Clinical Decision Making (Complexity): Clinical Presentation: Stable/Uncomplicated Clinical Presentation Rationale: based on medical and personal factors listed in PT evaluation Clinical Decision Making (Complexity): Low complexity PLAN OF CARE Treatment Interventions: Interventions: Neuromuscular Re-education, Therapeutic Activity, Therapeutic Exercise Lumber Trimmer Goals PT Goal 1 Goal Identifier: Sitting Goal Description: Be able to sit 1+ hour painfree Rationale: (for personal hygiene;to allow rest from standing;for community transportation;for job requirements in their work place) Target Date: 12/03/23 PT Goal 2 Goal Identifier: Sleep Goal Description: Be able to sleep 8 hours pain free Rationale: (to establish restorative sleep pattern) Target Date: 12/03/23 Frequency of Treatment: 1x/week decreasing to 2x/month Duration of Treatment: 8 weeks Recommended Referrals to Other Professionals: Education Assessment: Learner/Method: Patient;Demonstration;Pictures/Video Education Comments: print Risks and benefits of evaluation/treatment have been explained. Patient/Family/caregiver agrees with Plan of Care. Evaluation Time: Shon Singh Minutes ([id number]): 15 Signing Clinician: Zac Morris PT documented in this encounter Plan of Treatment Not on file documented as of this encounter Visit Diagnoses Diagnosis Primary osteoarthritis of right hip Primary localized osteoarthrosis, pelvic region and thigh Femoroacetabular impingement of right hip Enthesopathy of hip region documented in this encounter Additional Health Concerns Assessment Noted Time PHQ-9 Depression Total Score: 0 09/11/19 24 9:12 AM CDT documented as of this encounter Care Teams Glue Mill Operator Relationship Specialty Start Date End Date Leigh Tuttle PA-C [address] [place] [address] PCP - General Physician Acute Dialysis Registered Nurse 10/21/14 Leigh Tuttle PA-C [address] [place] [address] Assigned PCP 07/06/22 documented as of this encounter
--- OUTSIDE RECORDS SUMMARY | 2023-11-17 11:35 | XMS_ITS | Encounter Summary ---
Author Organization [facility] Address [address] [place] [address] Care Team Providers Care Electronic Equipment Maint Tech Name Role Phone Leigh Tuttle PA-C Primary Care Pr ovider Leigh Tuttle PA-C Unavailable Reason for Referral * Rehab Therapy Physical Therapy (Routine: Next available opening) - Referral NOT Required Specialty Diagnoses / Procedures Referred By Johnny olea Referred To Contact Physical Therapy Diagnoses Primary osteoarthritis of right hip Femoroacetabular impingement of right hip [address] [address] Referral ID Status Reason Start Date Expiration Date V isits Requested Visits Authorized [id number] Referral NOT Required 10/07/2023 02/24/2024 365 365 Question Answer Course of Action: Evaluation and Treatment Specialty Services: Per Associated Diagnosis Scheduling Instructions: [facility] will call you to coordinate your care as prescribed by your provider. If you don't hear from a bilingual inside sales representative within 2 business days, please call . Comments Please be aware that coverage of these services is subject to the terms and limitations of your health insurance plan. Call member services at your health plan with any benefit or coverage questions. [facility] will call you to coordinate your care as prescribed by your provider. If you don't hear from a bilingual inside sales representative within 2 business days, please call . Reason for Visit * Reason Comments Pain * Consultation (Routine) - Pending Review Specialty Diagnoses / Procedures Referred By Johnny olea Referred To Contact Diagnoses Hip pain, right Leigh Tuttle PA-C [address] [place] [address] Referral ID Status Reason Start Date Expiration Date V isits Requested Visits Authorized [id number] Pending Review 09/16/2023 09/15/2024 1 1 Encounter Details Date Type Department Care Team (Late st Contact Info) Description 09/23/2023 10:00 AM CDT Office Visit [facility] [place] [id number] [place] [address] [address] [place], [place] [address] Leigh Tuttle PA-C [address] [place], [place] [id number] [place] [address] [facility] [place] [address] [place], [place] [address] Primary osteoarthritis of right hip (Primary Dx); [...] often do you attend chur ch or christianity services? Never 07/02/2022 Do you belong to any clubs o r organizations such as mandaen groups, unions, fraternal or athletic groups, or [...] Answer Date Recorded PHQ-2 Score 0 09/12/2023 [facility] - Occupational [...] Sign Reading Time Taken Comments Blood Pressure 110/77 09/23/2023 9:52 AM CDT Pulse - - Temperature - - Respiratory Rate - - Oxygen Saturation - - Inhaled Oxygen Concentration - - Weight 64.4 kg (142 lb) 09/23/2023 9:52 AM CDT Height 170.2 cm (5' 7) 09/23/2023 9:52 AM CDT Body Mass Index 22.24 09/23/2023 9:52 AM CDT documented in this encounter Progress Notes * Mino Galvez, - 09/23/2023 10:00 AM CDTAssociated Order(s): Large Joint Injection/Arthocentesis: R hip joint Post-Procedure Diagnose(s): Primary osteoarthritis of right hip; Femoroacetabular impingement of right hip ASSESSMENT & PLAN Chandrika was seen today for pain. Diagnoses and all orders for this visit: Primary osteoarthritis of right hip - Orthopedic Cuffing Machine Operator Referral - Large Joint Injection/Arthocentesis: R hip joint - Physical Therapy Cuffing Machine Operator Referral; Future Femoroacetabular impingement of right hip - Large Joint Injection/Arthocentesis: R hip joint - Physical Therapy Cuffing Machine Operator Referral; Future This issue is chronic and Worsening. Chandrika presents to our clinic today to discuss her chronic righthip pain. History, imaging findings, and exam findings are consistent with her radiographically mild hip osteoarthritis as the main driver license reviewing officer of her symptoms. 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 We discussed these findings and the treatment options including anti-inflammatory medicines, physical therapy, corticosteroid injections, and surgical intervention in the form of a hip replacement. We discussed that given her arthritis is overall mild, she does not need a hip replacement at this time. We discussed the utility of corticosteroid injections for both pain relief and to better participate in physical therapy, and after this discussion the patient wished to proceed with this today. We determined the following plan: - CSI to the right hip performed today under ultrasound guidance, see procedure note below for details - Physical therapy referral placed - She can otherwise use [id number] pain medicines, ice, heat as needed - She can follow-up in our clinic as needed Mino Galvez DO [facility] [place] ----- Chief Complaint Patient presents with Right Hip - Pain SUBJECTIVE Chandrika Hoffmann is a/an 58 year old female who is seen in consultation at the request of Leigh Tuttle PA-C for evaluation of right hip pain. The patient is seen by themselves. Onset: 1 years(s) ago. Reports insidious onset without acute precipitating event. 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 General: healthy, alert and in no distress Skin: no suspicious lesions or rash. CV: distal perfusion intact Resp: normal respiratory effort without conversational dyspnea Psych: normal mood and affect Gait: NORMAL Neuro: Normal light sensory exam of RL extremity Hip Exam: Musculoskeletal Exam Gait Normal Left Right Inspection Grossly Normal Grossly Normal Palpation Tenderness over None None Range of Motion Flexion - Supine Full to about 90 Full to about 90 ER at 90 of flexion 55 55 IR at 90 of flexion 40 40 Strength 5/5 Flexion 5/5 Abduction in Neutral 5/5 Abduction in Extension Grossly Nml otherwise 5/5 Flexion 5/5 Abduction in Neutral 5/5 Abduction in Extension Grossly Nml otherwise Pain Provocation Tests FADIR NEG POS SHARON NEG NEG Instability/log roll NEG NEG Trochanteric Pain Sign NEG NEG Straight leg raise (passive) NEG NEG Posterior/Ischiofemoral Impingement Provocation NEG NEG Neurologic Intact sensation RADIOLOGY: Final results and radiologist's interpretation, available in the [facility] health record. Images were reviewed with the patient in the office today. My personal interpretation of the performed imaging: Mild joint space narrowing of the hips bilaterally. Cam deformity of the hips bilaterally. No acute bony abnormalities. Large Joint Injection/Arthocentesis: R hip joint Date/Time: 09/23/2023 10:34 AM Performed by: Mino Galvez DO Authorized by: Mino Galvez DO Indications: Pain and osteoarthritis Needle Size: 22 G Guidance: ultrasound Approach: Anterior Location: Hip Site: R hip joint Medications: 6 mg betamethasone acet & sod phos 6 (3-3) MG/ML; 5 mL lidocaine 1 %; 2 mL ROPivacaine 5 MG/ML Medications comment: 1ml of 8.4% Sodium Bicarbonate solution was used to buffer the local numbing agent for today's injection Outcome: Tolerated well, no immediate complications Procedure discussed: discussed risks, benefits, and alternatives Consent Given by: Patient Timeout: timeout called immediately prior to procedure Prep: patient was prepped and draped in usual sterile fashion Ultrasound was used to ensure safe and accurate needle placement and injection. Ultrasound images of the procedure were permanently stored. documented in this encounter Plan of Treatment Scheduled Referrals Name Type Priority Associated Diagnoses Orde r Schedule Physical Therapy Cuffing Machine Operator Referral Referral Routine: Next available opening Primary osteoarthritis of right hip Femoroacetabular impingement of right hip Expected: 09/23/2023 (Approximate), Expires: 09/22/2024 documented as of this encounter Procedures Procedure Name Priority Date/Time Associated Diagnosis Comments [place] ARTHROCENTESIS ASPIR&/INJ MAJOR JT/BURSA W/US Routine 09/23/2023 10:34 AM CDT Primary osteoarthritis of right hip Femoroacetabular impingement of right hip documented in this encounter Results * [place] ARTHROCENTESIS ASPIR&/INJ MAJOR JT/BURSA W/US (09/23/2023 10:34 [...] Mino Galvez DO PROCEDURE/MINOR SURG ICAL ORDERABLES documented in this encounter Visit Diagnoses Diagnosis Primary osteoarthritis of right hip- Primary Primary localized osteoarthrosis, pelvic region and thigh Femoroacetabular impingement of right hip Enthesopathy of hip region documented in this encounter Administered Medications Inactive Administered Medications - up to 3 most recent administrations Medication Order MAR Action Action Date Dose Rate Site 2 mL ropivacaine (NAROPIN) injection 5 mg/mL 2 mL, Starting on Fri09/23/23 at 1034 $Given 09/23/2023 10:34 AM CDT 2 mLs betamethasone acet & sod phos (CELESTONE) injection 6 mg 6 mg, Starting on Fri09/23/23 at 1034 $Given 09/23/2023 10:34 AM CDT 6 mg lidocaine 1 % injection 5 mL 5 mL, Starting on Fri09/23/23 at 1034 $Given 09/23/2023 10:34 AM CDT 5 mLs documented in this encounter Additional Health Concerns Assessment Noted Time PHQ-9 Depression Total Score: 0 09/11/19 9:12 AM CDT documented as of this encounter Care Teams Electronic Equipment Maint Tech Relationship Specialty Start Date End Date Leigh Tuttle PA-C [address] [place] [address] PCP - General Physician Sizing End Bander 10/21/14 Leigh Tuttle PA-C [address] [place] [address] Assigned PCP 07/06/22 documented as of this encounter
--- OUTSIDE RECORDS SUMMARY | 2023-11-17 11:35 | XMS_ITS | Encounter Summary ---
Author Organization [facility] Address [address] [place] [address] Care Team Providers Care Technical Inspector Name Role Phone Leigh Tuttle PA-C Primary Care Pr ovider Leigh Tuttle PA-C Unavailable Mino Galvez DO Unavailable [phone] Reason for Visit * Reason Onset Date Comments Appt Scheduled 11/04/2023 Encounter Details Date Type Department Care Team (Late st Contact Info) Description 11/04/2023 Telephone [facility] [place] [id number] [place] [address] [address] [place], [place] [id number] [place] Lopez [place] [id number] [place] [address] [facility] [address] [place] [place], [place] [id number] Appt Scheduled Social History Tobacco Use Types Packs/Day Years [...] often do you attend chur ch or catholic services? Never 07/02/2022 Do you belong to any clubs o r organizations such as alevism groups, unions, fraternal or athletic groups, or [...] Answer Date Recorded PHQ-2 Score 0 09/12/2023 [facility] - Occupational [...] place to sleep or slept in a long-term (including now)? No 07/02/2022 Adolescent Education Answer [...] AM CDT documented as of this encounter Miscellaneous Notes * Telephone Encounter - Daniella White ATC - 11/04/2023 4:43 PM CDT Noted information below. Dr. Lopez will reevaluate patient and discuss possible treatment options at appt on 11/07. Daniella White ATC * Telephone Encounter - Xoimara Edwards - 11/04/2023 3:55 PM CDT ERICKA Pt is scheduled for an appointment with Dr. Lopez on 11/07 for her Right Hip. She was seen by Dr. Galvez on 09/22 and requested an appointment with the next available provider. She is in considerable pain and wants to discuss options going forward and if possible wants an injection. She has been doing PT, but just started so she isn't seeing any improvements as of right now. documented in this encounter Plan of Treatment Not on file documented as of this encounter Visit Diagnoses Not on filedocumented in this encounter Additional Health Concerns Assessment Noted Time PHQ-9 Depression Total Score: 0 09/11/19 9:12 AM CDT documented as of this encounter Care Teams Technical Inspector Relationship Specialty Start Date End Date Leigh Tuttle PA-C [address] [place] [address] PCP - General Physician Computer Systems Architect 10/21/14 Leigh Tuttle PA-C [address] [place] [address] Assigned PCP 07/06/22 [place] [address] [place], [address] [address] Assigned Musculoskeletal Provider 10/17/23 documented as of this encounter
--- OUTSIDE RECORDS SUMMARY | 2023-11-17 11:35 | XMS_ITS | Encounter Summary ---
Author Organization [facility] Address [address] [place] [address] Care Team Providers Care Horse Identifier Name Role Phone Leigh Tuttle PA-C Primary Care Pr ovider Leigh Tuttle PA-C Unavailable Reason for Referral * Consultation (Routine) - Pending Review Specialty Diagnoses / Procedures Referred By Johnny olea Referred To Contact Diagnoses Hip pain, right Leigh Tuttle PA-C [address] [place] [address] Referral ID Status Reason Start Date Expiration Date V isits Requested Visits Authorized [id number] Pending Review 09/16/2023 09/15/2024 1 1 Question Answer Consult Type: Hip (Lat/Ant) Type: Per Protocol Scheduling Instructions: [facility] Orthopedic Ic Design Engineer will call you to coordinate your care as prescribed by your provider. A cash applications representative will call you within 2 business days to help you schedule your appointment, or you may contact the Ic Design Engineer Roll Carrier at: . Comments Please be aware that coverage of these services is subject to the terms and limitations of your health insurance plan. Call member services at your health plan with any benefit or coverage questions. [facility] Orthopedic Ic Design Engineer will call you to coordinate your care as prescribed by your provider. A cash applications representative will call you within 2 business days to help you schedule your appointment, or you may contact the [facility] Roll Carrier at: . Encounter Details Date Type Department Care Team (Late st Contact Info) Description 09/16/2023 MyC Medical Advice [facility] [id number] [place] [id number] Leigh Tuttle PA-C [address] [place] [address] Hip pain, right (Primary Dx) Social History Tobacco Use Types Packs/Day Years [...] 09/12/2023 [facility] Occupat ional Health - Occupational Stress [...] place to sleep or slept in a intermediate (including now)? No 07/02/2022 Adolescent Education Answer [...] encounter Miscellaneous Notes * Telephone Encounter - Leigh Tuttle PA-C - 09/16/2023 12:11 PM CDT . documented in this encounter Plan of Treatment Scheduled Referrals Name Type Priority Associated Diagnoses Orde r Schedule Orthopedic Ic Design Engineer Referral Referral Routine Hip pain, right Expected: 09/16/2023 (Approximate), Expires: 09/15/2024 documented as of this encounter Visit Diagnoses Diagnosis Hip pain, right- Primary Pain in joint, pelvic region and thigh documented in this encounter Additional Health Concerns Assessment Noted Time PHQ-9 Depression Total Score: 0 09/11/19 9:12 AM CDT documented as of this encounter Care Teams Horse Identifier Relationship Specialty Start Date End Date Leigh Tuttle PA-C [address] [place] [address] PCP - General Physician Phlebotomy Lab Assistant 10/21/14 Leigh Tuttle PA-C [address] [place] [address] Assigned PCP 07/06/22 documented as of this encounter
--- OUTSIDE RECORDS SUMMARY | 2023-11-17 11:35 | XMS_ITS | Encounter Summary ---
Author Organization [facility] Address [address] [place] [address] Care Team Providers Care Food Critic Name Role Phone Leigh Tuttle PA-C Primary Care Pr ovider Leigh Tuttle PA-C Unavailable Reason for Visit * Diagnostic Imaging XR (Routine) - Pending Review Specialty Diagnoses / Procedures Referred By Johnny t Referred To Contact Radiology. Diagnoses Hip pain, right Procedures XR Pelvis and Hip Bilateral 2 Views Leigh Tuttle PA-C [address] [place] [address] Referral ID Status Reason Start Date Expiration Date V isits Requested Visits Authorized [id number] Pending Review 09/12/2023 09/11/2024 1 1 Encounter Details Date Type Department Care Team (Latest Contact Info) Description 09/12/2023 11:20 AM CDT Ancillary Procedure [facility] [id number] [place] [phone] Leigh Tuttle PA-C [address] [place] [address] Hip pain, right Social History Tobacco Use Types Packs/Day Years [...] How often do you attend chur or roman catholic services? Never 07/02/2022 Do you belong to any clubs o r organizations such as scientologist groups, unions, fraternal or athletic groups, or [...] Answer Date Recorded PHQ-2 Score 0 09/12/2023 [facility] ional Health - Occupational [...] place to sleep or slept in a mcc (including now)? No 07/02/2022 Adolescent Education Answer [...] on file documented as of this encounter Procedures Procedure Name Priority Date/Time Associated Diagnosis Comments XR PELVIS AND HIP BILATERAL 2 VIEWS Routine 09/12/2023 11:24 AM CDT Hip pain, right documented in this encounter Results * XR Pelvis and Hip Bilateral 2 Views (09/12/2023 11:24 AM CDT) Anatomical Region Laterality Modality Hip, Abdomen/Pelvis Bilateral Computed Rad iography Impressions 09/12/2023 12:49 PM CDT IMPRESSION: Anatomic alignment of each hip. No acute displaced hip fracture. Mild bilateral hip joint space narrowing. No acute displaced pelvic fracture. Transitional lumbosacral segment. Degenerative changes lower lumbar spine. ERMIAS VOGEL MD SYSTEM ID: [id number] Narrative 09/12/2023 12:49 PM CDT PELVIS AND HIP BILATERAL 2 VIEWS DATE/TIME: 09/12/2023 11:24 AM INDICATION: Hip pain. COMPARISON: None available. Procedure Note Ermias Vogel MD - 09/12/2023 PELVIS AND HIP BILATERAL 2 VIEWS DATE/TIME: 09/12/2023 11:24 AM INDICATION: Hip pain. COMPARISON: None available. IMPRESSION: Anatomic alignment of each hip. No acute displaced hip fracture. Mild bilateral hip joint space narrowing. No acute displaced pelvic fracture. Transitional lumbosacral segment. Degenerative changes lower lumbar spine. ERMIAS VOGEL MD SYSTEM ID: [id number] Leigh Tuttle PA-C IMG DIAG NOSTIC IMAGING ORDERABLES documented in this encounter Visit Diagnoses Diagnosis Hip pain, right Pain in joint, pelvic region and thigh documented in this encounter Additional Health Concerns Assessment Noted Time PHQ-9 Depression Total Score: 0 09/11/19 24 9:12 AM CDT documented as of this encounter Care Teams Food Critic Relationship Specialty Start Date End Date Leigh Tuttle PA-C [address] [place] [address] PCP - General Physician Peer Counselor 10/21/14 Leigh Tuttle PA-C [address] [place] [address] Assigned PCP 07/06/22 documented as of this encounter
--- OUTSIDE RECORDS SUMMARY | 2023-11-17 11:35 | XMS_ITS | Clinical Summary ---
Author Organization [facility] Address [address] [place] [address] Care Team Providers Care Family Practice Nurse Practitioner Name Role Phone Leigh Tuttle PA-C Primary Care Pr ovider Leigh Tuttle PA-C Unavailable Mino Galvez DO Unavailable [phone] Allergies Active Allergy Reactions Criticality Noted Date [...] L GOAL LESS THAN 160 12/24/2009 06/04/2021 Encounters Date Type Department Care Team Description 11/08/2023 9:20 AM CDT Office Visit [address] [address] Ethel De Jesus MD Yeo, Albert, MD Primary osteoarthritis of right hip (Primary Dx); Hip pain, right; Femoroacetabular impingement of right hip 11/08/2023 Travel 11/04/[address] [address] Adarsh Lopez MD Appt Scheduled 10/15/2023 11:20 AM CDT Therapy Visit [address] [address] Zac Morris, PT Primary osteoarthritis of right hip (Primary Dx); Femoroacetabular impingement of right hip 10/15/2023 Travel 10/08/2023 10:40 AM CDT Therapy Visit [address] [address] Zac Morris, PT Primary osteoarthritis of right hip; Femoroacetabular impingement of right hip 10/08/2023 Travel 09/23/2023 10:00 AM CDT Office Visit [address] [address] Leigh Mondragon ra, PA-C Sheehan, Andrew, DO Primary osteoarthritis of right hip (Primary Dx); Femoroacetabular impingement of right hip 09/23/2023 Travel 09/16/2023 MyC Medical Advice [address] [phone] Leigh Mondragon ra, PA-C Hip pain, right (Primary Dx) 09/12/2023 11:20 AM CDT Ancillary Procedure [address] [phone] Leigh Mondragon ra, PA-C Hip pain, right 09/12/2023 11:00 AM CDT Virtual Visit [address] [address] Leigh Mondragon ra, PA-C Hip pain, right (Primary Dx) from Last 3 Months Immunizations Name Administration Dates Next Due COVID-19 MONOVALENT 12+ (Pfizer) 02/06/2021,05/26,05/19/2020 Hepatitis A (ADULT 19+) 03/10/2012 Hepatitis B, Adult 03/10/2012 Influenza (IIV3) PF 11/13/2009 Influenza, seasonal, injectable, PF 03/10/2012 TDAP (Adacel,Boostrix) 02/25/2012,05/08/2010 Family History Medical History Relation Comments Family History Negative Father Family History Negative Mother Family History Negative Other Colon Cancer No family hx of Relation Status Comments Father Alive Mother Alive Other Social History Tobacco Use Types Packs/Day Years [...] often do you attend chur ch or bahai services? Never 07/02/2022 Do you belong to any clubs o r organizations such as yazidi groups, unions, fraternal or athletic groups, or [...] Answer Date Recorded PHQ-2 Score 0 09/12/2023 [facility] of Occupat ional Health - Occupational Stress [...] place to sleep or slept in a skilled nursing (including now)? No 07/02/2022 Adolescent Education Answer [...] 11/08/2023 9:06 AM CDT Plan of Treatment Health Maintenance Due Date Last Done Comments CT COLONOGRAPHY 1965 FIT 1965 FLEX SIG 1965 sDNA (Cologuard) 1965 HEPATITIS B IMMUNIZATION (2 of 3 - 19+ 3-dose series) 04/07/2012 03/10/2012 ZOSTER IMMUNIZATION (1 of 2) 07/27/2015 HPV TEST 02/10/2022 02/10/2017 PAP 02/10/2022 02/10/2017, 11/0 05/2012, 03/19/2010, Additional history exists MAMMO SCREENING 05/28/2023 05/27/2022, 0 09/2018, 02/20/2017, Additional history exists ANNUAL REVIEW OF HM ORDERS 07/04/2023 07/03/2022 TSH W/FREE T4 REFLEX 07/04/2023 07/03/2022, 06/01/2018, 07/28/2017, Additional history exists YEARLY PREVENTIVE VISIT 07/04/2023 07/04/19 23, 05/15/2018, 07/28/2017, Additional history exists COVID-19 Vaccine ( season) 2023 02/06/2021, 06/15/2020, 05/19/2020 INFLUENZA VACCINE (#1) 2023 03/10/2012, 2009 GLUCOSE 07/03/2025 07/03/2022, 0 09/2018, 07/28/2017, Additional history exists LIPID 07/04/2027 07/03/2022, 0 09/2018, 07/28/2017, Additional history exists ADVANCE CARE PLANNING 07/06/2027 07/05/2022 COLONOSCOPY 10/02/2032 10/02/2022, 10/02/2022 COLORECTAL CANCER SCREENING 10/02/2032 DTAP/TDAP/TD IMMUNIZATION (4 - Td or Tdap) 09/28/2033 09/29/2023, 02/25/2012, 05/08/2010 HIV SCREENING Completed 07/28/2017 HEPATITIS C SCREENING Completed 07/03/2022 PHQ-2 (once per calendar year) Completed 09/12/2023, 09/12/2023, 07/22/2023, Additional history exists HPV IMMUNIZATION Aged Out No longer e ligible based on patient's age to complete this topic MENINGITIS IMMUNIZATION Aged Out No l onger eligible based on patient's age to complete this topic Pneumococcal Vaccine: Pediatrics (0 to 5 Years) and At-Risk Patients (6 to 64 Years) Aged Out No longer eligible based on patient's age to complete this topic RSV MONOCLONAL ANTIBODY Aged Out No l onger eligible based on patient's age to complete this topic Procedures Procedure Name Priority Date/Time Associated Diagnosis Comments TN ARTHROCENTESIS ASPIR&/INJ MAJOR JT/BURSA W/US Routine 09/23/2023 [...] THIN LAYER SCREEN Routine 02/10/2017 10:35 AM READERS' ADVISORY SERVICE LIBRARIAN Encounter for gynecological examination without abnormal finding HPV HIGH RISK TYPES DNA CERVICAL Routine 02/10/2017 10:30 AM READERS' ADVISORY SERVICE LIBRARIAN Encounter for gynecological examination without abnormal finding from Last 3 Months or Most Recently Relevant to Health Maintenance Results * TN ARTHROCENTESIS ASPIR&/INJ MAJOR JT/BURSA W/US (09/23/2023 10:34 AM CDT) Narrative Mino Galvez DO - 09/23/2023 10:34 AM CDT Mino Galvez, DO ? 09/23/2023 12:55 PM Large Joint [...] lumbar spine. JOEY AMBROCIO MD SYSTEM ID: ??[id number] Narrative 09/12/2023 12:49 PM CDT PELVIS AND [...] lumbar spine. JOEY AMBROCIO MD SYSTEM ID: [id number] Leigh Tuttle PA-C IMG DIAG NOSTIC IMAGING ORDERABLES * COLONOSCOPY (10/02/2022 12:28 PM CDT) [facility] COLONOSCOPY [facility] Patient Name: Chandrika Hoffmann ?Procedure Date: 10/02/2022 [...] continuously. The ?Olympus Adult Colonoscope, Model # CF-WD125X, ?Endora # 224, SN # [id number] was introduced through ?the anus and advanced [...] malignant neoplasm of colon CPT copyright 2021 [employer]. All rights reserved. The codes documented in this report are preliminary and upon plant breeder scientist review may be revised to meet current compliance requirements. Electronically signed by Nancy Ortega MD __ NANCY ORTEGA MD 10/02/2022 1:22:54 PM I was physically present for the entire viewing portion of the exam. NANCY ORTEGA MD Number of Addenda: 0 Note Initiated On: 10/02/2022 12:28 PM MRN: ?[id number] Procedure Date: ? 10/02/2022 12:28:27 PM Scope Withdrawal Time: 0 hours 6 minutes 24 seconds Total Procedure Duration: 0 hours 15 minutes 34 seconds Estimated Blood Loss: ? Scope In: 12:54:52 PM Scope Out: 1:10:26 PM RADIOLOGY RESULTS 10/02/2022 12:2 8 PM CDT Leigh ARTHUR RADIOLOGY RESULTS * Hepatitis C Screen Reflex to HCV RNA Quant and Genotype (07/03/2022 11:48 AM CDT) Hepatitis C Antibody Nonreactive Nonreactive 07/04/2022 2:37 PM CDT [facility] SPECIALTY CORE/PROT/EN DO Blood BLOOD SPECIMEN / Unknown Venipuncture / Unknown 07/03/2022 11:48 AM CDT 07/03/2022 11:48 AM CDT Narrative SPECIALTY CORE/PROT/ENDO - 07/04/2022 2:37 PM CDT Assay performance characteristics have not been established for newborns, infants, and children. Leigh Tuttle PA-C LAB - BL OOD ORDERABLES SPECIALTY CORE/PROT/ENDO Specialty Core/Prot/Endo [facility], [address] [address] [phone] * TSH with free T4 reflex (07/03/2022 11:48 AM CDT) TSH 1.95 0.30 - 4.20 uIU/mL 07/03/2022 9:17 PM CDT [facility] Blood BLOOD SPECIMEN / Unknown Venipuncture / Unknown 07/03/2022 11:48 AM CDT 07/03/2022 11:48 AM CDT Leigh Tuttle PA-C LAB - BL OOD ORDERABLES [facility] [address] [facility], [address] [address], [facility] [phone] * (ABNORMAL) Lipid Profile (07/03/2022 11:48 AM [...] LAB - BL OOD ORDERABLES [facility] [address] [facility], [address] [phone], [facility] [phone] * (ABNORMAL) Comprehensive metabolic panel (07/03/2022 11:48 [...] LAB - BL OOD ORDERABLES [facility] [address] [facility], [address] [place] [address], [facility] [phone] * MA Screening Bilateral w/ Arnaldo (05/27/2022 11:47 AM CDT) Anatomical Region Laterality Modality Breast Bilateral Mammography Impressions 05/28/2022 11:21 AM CDT IMPRESSION: ACR BI-RADS Category 1: Negative RECOMMENDED FOLLOW-UP: Annual routine screening mammogram The results and recommendations of this examination will be communicated to the patient. Hilario Flor Sotero Narrative 05/28/2022 11:21 AM CDT BILATERAL FULL [...] Nonreactive NR^Nonrea ctive 07/28/2017 8:40 PM CDT [facility] Comment:HIV-1 p24 Ag & HIV-1 /HIV-2 Ab Not Detected Blood specimen (specimen) 07/28/2017 8:53 AM CDT 07/28/2017 8:54 AM CDT Leigh Tuttle PA-C LAB - BL OOD ORDERABLES Performing Organization Address City/State/[facility] Co de Phone Number [facility] [address] [place] [address] * Pap imaged thin layer screen with HPV - recommended age 30 - 65 (02/10/2017 10:35 AM READERS' ADVISORY SERVICE LIBRARIAN) PAP MELVIN Brennan Report Patient Name: CHANDRIKA HOFFMANN MR#: [id number] Specimen #: [id number] Collected: 02/10/2017 Received: 02/11/2017 Reported: 02/12/2017 10:12 [...] FELIPE Jaeger (ASCP) Processed and screened at [facility] CLINICAL HISTORY: Currently not having periods Irregular periods, Previous normal pap Date of Last Pap: 12/28/12, Papanicolaou Test Limitations: ??Cervical cytology is a screening test with limited sensitivity; regular screening is critical for cancer prevention; Pap tests are primarily effective for the diagnosis/preventi on of squamous cell carcinoma, not adenocarcinomas or other cancers. TESTING LAB LOCATION: [address] ??[phone] COLLECTION SITE: Client: ??[facility] Location: HALEY BRENNAN (R) Cytologic material (specimen) 02/10/2017 10:35 AM READERS' ADVISORY SERVICE LIBRARIAN 02/11/2017 9:11 AM READERS' ADVISORY SERVICE LIBRARIAN Stormy Guerrero DO LAB - [facility]IME [facility] L SPECIMEN COPATH * HPV High Risk Types DNA Cervical (02/10/2017 10:30 AM READERS' ADVISORY SERVICE LIBRARIAN) HPV 16 DNA Negative NEG^Nega tive 02/14/2017 7:22 AM READERS' ADVISORY SERVICE LIBRARIAN [facility] HPV 18 DNA Negative NEG^Nega tive 02/14/2017 7:22 AM READERS' ADVISORY SERVICE LIBRARIAN [facility] Other HR HPV Negative NEG^Nega tive 02/14/2017 7:22 AM READERS' ADVISORY SERVICE LIBRARIAN [facility] Final Diagnosis This patient's sample is negative for HPV DNA. 02/14/2017 7:22 AM READERS' ADVISORY SERVICE LIBRARIAN [facility] Comment: (Note) METHODOLOGY: ??The [facility]ao [address] 4800 [...] and its performance characteristics determined by the [facility], Molecular Diagnostics Laboratory. It has not been cleared or approved by the FDA. The laboratory is regulated under CLIA as qualified to perform high-complexity testing. This test is used for clinical purposes. It should not be regarded as investigational or for research. Specimen Description Cervical Cells 02/13/2017 9:07 AM READERS' ADVISORY SERVICE LIBRARIAN [facility] Comment:[id number] Cervical Cells 02/10/2017 10 :30 AM READERS' ADVISORY SERVICE LIBRARIAN 02/10/2017 11:33 AM READERS' ADVISORY SERVICE LIBRARIAN Stormy Guerrero DO LAB - BLOOD ORDERABL ES [facility] [address] [place] [address] from Last 3 Months or Most Recently Relevant to Health Maintenance Care Teams Family Practice Nurse Practitioner Relationship Specialty Start Date End Date Leigh Tuttle PA-C [address] [place] [address] PCP - General Physician Customer Operations Associate 10/21/14 Leigh Tuttle PA-C [address] [place] [address] Assigned PCP 07/06/22 [place] [address] [address] [facility] [place] [address] Assigned Musculoskeletal Provider 10/17/23
--- OUTSIDE RECORDS SUMMARY | 2023-11-17 11:35 | XMS_ITS | Encounter Summary ---
Author Organization [facility] Address [address] [place] [address] Care Team Providers Care Music Rehabilitation Therapist Name Role Phone Leigh Tuttle PA-C Primary Care Pr ovider Leigh Tuttle PA-C Unavailable Reason for Referral * Diagnostic Imaging XR (Routine) - Pending Review Specialty Diagnoses / Procedures Referred By Johnny olea Referred To Contact Radiology. Diagnoses Hip pain, right Procedures XR Pelvis and Hip Bilateral 2 Views Leigh Tuttle PA-C [address] [place] [address] Referral ID Status Reason Start Date Expiration Date V isits Requested Visits Authorized [id number] Pending Review 09/12/2023 09/11/2024 1 1 Reason for Visit * Reason Comments Mass Right leg Encounter Details Date Type Department Care Team (Late st Contact Info) Description 09/12/2023 11:00 AM CDT Virtual Visit [facility] [address] [place] [phone] Leigh Tuttle PA-C [address] [place] [address] Hip pain, right (Primary Dx) [...] How often do you attend chur or uatsdin services? Never 07/02/2022 Do you belong to any clubs o r organizations such as lutheran groups, unions, fraternal or athletic groups, or [...] Answer Date Recorded PHQ-2 Score 0 09/12/2023 [facility] of Occupat ional Health - Occupational Stress [...] place to sleep or slept in a long term (including now)? No 07/02/2022 Adolescent Education Answer [...] as of this encounter Progress Notes * Leigh Tuttle PA-C - 09/12/2023 11:00 AM CDT Chandrika is a 58 year old who is being evaluated via a billable video visit. How would you like to obtain your AVS? MyChart If the video visit is dropped, the invitation should be resent by: Text to cell phone: [phone] Will anyone else be joining your video visit? No Assessment & Plan Hip pain, right Will get hip xray and determine plan. If xray shows OA osmani will refer to ortho to discuss plan. If negative for OA then will refer to gen keo to discuss removing lymph node that is causing pain in that area. - XR Pelvis and Hip Bilateral 2 Views; Future Subjective Chandrika is a 58 year old, presenting for the following health issues: Mass (Right leg) 09/12/2023 10:18 AM Additional Questions Roomed by Debby Has discomfort in right upper posterior thigh. Was seen a year ago for a mass in groin and was determined to be a lymph nose and she states this area gets very painful and seem to be connected to hipand low back pain. Has an appt with [facility] next week. Via the Health Maintenance questionnaire, the patient has reported the following services have beencompleted -Mammogram: Not sure 2022-07-05, this information has been sent to the abstraction team. Mass History of Present Illness Back Pain: She presents for follow up of back pain. Patient's back pain is a chronic problem. Location of back pain: Right lower back Description of back pain: sharp Back pain spreads: right thigh Since patient first noticed back pain, pain is: always present, but gets better and worse Does back pain interfere with her job: Yes Reason for visit: Groin pain right side She eats 0-1 servings of fruits and vegetables daily.She consumes 0 sweetened beverage(s) daily.Sheexercises with enough effort to increase her heart rate 10 to 19 minutes per day. She exercises with enough effort to increase her heart rate 3 or less days per week. She is taking medications regularly. Had an US in the same area June of 2022 Still having pain in the same area. Review of Systems Constitutional, neuro, ENT, endocrine, pulmonary, cardiac, gastrointestinal, genitourinary, musculoskeletal, integument and psychiatric systems are negative, except as otherwise noted. Objective Vitals - Patient Reported Weight (Patient Reported): 63.5 kg (140 lb) Height (Patient Reported): 170.2 cm (5' 7) BMI (Based on Pt Reported Ht/Wt): 21.93 Vitals: No vitals were obtained today due to virtual visit. Physical Exam GENERAL: alert and no distress EYES: Eyes grossly normal to inspection. No discharge or erythema, or obvious scleral/conjunctival abnormalities. RESP: No audible wheeze, cough, or visible cyanosis. SKIN: Visible skin clear. No significant rash, abnormal pigmentation or lesions. NEURO: Cranial nerves grossly intact. Mentation and speech appropriate for age. PSYCH: Appropriate affect, tone, and pace of words Video-Visit Details Type of service: Video Visit Originating Location (pt. Location): Home Distant Location (provider location): On-site Platform used for Video Visit: [employer]Well Signed Electronically by: Leigh Tuttle PA-C documented in this encounter Plan of Treatment Not on file documented as of this encounter Results * XR Pelvis and [...] lumbar spine. ERMIAS VOGEL MD SYSTEM ID: ??[id number] Narrative 09/12/2023 12:49 PM CDT PELVIS AND [...] lumbar spine. ERMIAS VOGEL MD SYSTEM ID: [id number] Leigh Tuttle PA-C IMG DIAG NOSTIC IMAGING ORDERABLES documented in this encounter Visit Diagnoses Diagnosis Hip pain, right- Primary Pain in joint, pelvic region and thigh Hip pain, right Pain in joint, pelvic region and thigh documented in this encounter Additional Health Concerns Assessment Noted Time PHQ-9 Depression Total Score: 0 09/11/19 24 9:12 AM CDT documented as of this encounter Care Teams Music Rehabilitation Therapist Relationship Specialty Start Date End Date Leigh Tuttle PA-C [address] [place] [address] PCP - General Physician Rougher Operator 10/21/14 Leigh Tuttle PA-C [address] [place] [address] Assigned PCP 07/06/22 documented as of this encounter
--- OUTSIDE RECORDS SUMMARY | 2023-11-17 11:35 | XMS_ITS | Encounter Summary ---
Author Organization [employer] Address [address] [place] [address] Care Team Providers Care Admissions Coordinator Name Role Phone Leigh Tuttle PA-C Primary Care Pr ovider Leigh Tuttle PA-C Unavailable Mino Galvez DO Unavailable [phone] Encounter Details Date Type Department Care Team (Latest Contact Info) Description 11/08/2023 Travel Social History Tobacco Use Types Packs/Day [...] often do you attend chur ch or moravian services? Never 07/02/2022 Do you belong to [...] Answer Date Recorded PHQ-2 Score 0 09/12/2023 [facility] [place] of Occupat ional Health - Occupational Stress [...] place to sleep or slept in a longterm (including now)? No 07/02/2022 Adolescent Education Answer [...] documented as of this encounter Care Teams Admissions Coordinator Relationship Specialty Start Date End Date Leigh Tuttle PA-C [address] [place] [address] PCP - General Physician Curtain Inspector 10/21/14 Leigh Tuttle PA-C [address] [place] [address] Assigned PCP 07/06/22 [place] [address] [address], [address] [address] Assigned Musculoskeletal Provider 10/17/23 documented as of this encounter
--- OUTSIDE RECORDS SUMMARY | 2023-11-17 11:35 | XMS_ITS | Encounter Summary ---
Author Organization [facility] Address [address] [place] [address] Care Team Providers Care Sandal Parts Assembler Name Role Phone Leigh Tuttle PA-C Primary Care Pr ovider Leigh Tuttle PA-C Unavailable Mino Galvez DO Unavailable [phone] Encounter Details Date Type Department Care Team (Late st Contact Info) Description 07/19/2022 [facility] [address] [place] [address] Arlette Saldivar Social History Tobacco [...] often do you attend chur ch or judaism services? Never 07/02/2022 Do you belong to any clubs o r organizations such as shinto groups, unions, fraternal or athletic groups, or [...] Answer Date Recorded PHQ-2 Score 0 07/03/2022 [facility] of Occupat ional Health - [...] place to sleep or slept in a jail (including now)? No 07/02/2022 Sex and Gender [...] Total Score: 0 02/11/20 17 10:14 AM OFFICE MACHINE SERVICER documented as of this encounter Care Teams Sandal Parts Assembler Relationship Specialty Start Date End Date Leigh Tuttle PA-C [address] [place] [address] PCP - General Physician Product Manager 10/21/14 Leigh Tuttle PA-C [address] [place] [address] Assigned PCP 07/06/22 [place] [address] [address], [address] [address] Assigned Musculoskeletal Provider 10/17/23 documented as of this encounter
--- OUTSIDE RECORDS SUMMARY | 2023-11-17 11:36 | XMS_ITS | Encounter Summary ---
Author Organization [facility] Address [address] [place] [address] Care Team Providers Care Slackman Name Role Phone Leigh Tuttle PA-C Primary Care Pr ovider Leigh Tuttle PA-C Unavailable Leigh Tuttle PA-C Unavailable Tonya Kramer PA-C Unavailable Leigh Tuttle PA-C Unavailable Mino Galvez DO Unavailable [phone] Encounter Details Date Type Department Care Team (Late st Contact Info) Description 12/02/2016 [facility] [address] [place] [phone] Michelle Anne, SERVICE MEMBER Social History Tobacco Use Types Packs/Day Years Used Date Smoking Tobacco: Never Smokeless Tobacco: Never Alcohol Use Standard Drinks/Week Comments Yes 0 (1 standard drink = 0.6 oz pur e alcohol) 10-12 drinks weekly Sex and Gender Information Value Date Recorded Sex Assigned at Female 05/25/2021 9:19 AM CDT Gender Identity Female 05/25/2021 9:19 AM CDT Sexual Orientation Straight 05/25/2021 9: 19 AM CDT documented as of this encounter Plan of Treatment Not on file documented as of this encounter Visit Diagnoses Not on filedocumented in this encounter Care Teams Slackman Relationship Specialty Start Date End Date Leigh Tuttle PA-C [address] [place] [address] PCP - General Physician Alterations Sewer 10/21/14 Leigh Tuttle PA-C [address] [place] [address] PCP - Assigned PCP 10/23/14 04/28/18 Leigh Tuttle PA-C [address] [place] [address] Assigned PCP 10/23/14 07/29/20 Tonya Kramer PA-C [facility] [address] [place] [address] Assigned PCP 06/10/21 07/05/22 Leigh Tuttle PA-C [address] [place] [address] Assigned PCP 07/06/22 [place] [address] [place] [address] Assigned Musculoskeletal Provider 10/17/23 documented as of this encounter
--- OUTSIDE RECORDS SUMMARY | 2023-11-17 11:36 | XMS_ITS | Encounter Summary ---
Author Organization [facility] Address [address] [place] [address] Care Team Providers Care Cultural Historian Name Role Phone Leigh Tuttle PA-C Primary Care Pr ovider Tonya Kramer PA-C Unavailable Leigh Tuttle PA-C Unavailable Mino Galvez DO Unavailable [phone] Encounter Details Date Type Department Care Team (Late st Contact Info) Description 02/01/2022 MyC Medical Advice [facility] [id number] [place] [phone] Debby Summers CMA Social History Tobacco Use Types Packs/Day Years Used Date Smoking Tobacco: Former Cigarettes 0.5 8 0 09/12/1989 - 09/12/1997 Smokeless Tobacco: Never Alcohol Use Standard Drinks/Week Comments Yes 0 (1 standard drink = 0.6 oz pur e alcohol) 7 drinks per week PHQ-2 Answer Date Recorded PHQ-2 Score 0 06/04/2021 Sex and Gender Information Value Date Recorded [...] Total Score: 0 02/11/20 17 10:14 AM BUNDLES HANGER documented as of this encounter Care Teams Cultural Historian Relationship Specialty Start Date End Date Leigh Tuttle PA-C [address] [place] [address] PCP - General Physician Relays Draftsperson 10/21/14 Tonya Kramer PA-C [facility] [address] [place] [address] Assigned PCP 06/10/21 07/05/22 Leigh Tuttle PA-C [address] [place] [address] Assigned PCP 07/06/22 [place] [address] [address], [place] [address] [place] [address] Assigned Musculoskeletal Provider 10/17/23 documented as of this encounter
--- OUTSIDE RECORDS SUMMARY | 2023-11-17 11:36 | XMS_ITS | Encounter Summary ---
Author Organization [facility] Address [address] [place] [id number] Care Team Providers Care Hearing Aid Repairer Name Role Phone Leigh Tuttle PA-C Primary Care Pr ovider Leigh Tuttle PA-C Unavailable Leigh Tuttle PA-C Unavailable Tonya Kramer PA-C Unavailable Leigh Tuttle PA-C Unavailable Mino Galvez DO Unavailable [phone] Encounter Details Date Type Department Care Team (Late st Contact Info) Description 08/23/2016 [facility] [id number] [place] [id number] Michelle Anne, WOOD HACKER Social History Tobacco Use Types Packs/Day Years [...] on filedocumented in this encounter Care Teams Hearing Aid Repairer Relationship Specialty Start Date End Date Leigh Tuttle PA-C [address] [place] [address] PCP - General Physician African History Professor 10/21/14 Leigh Tuttle PA-C [address] [place] [address] PCP - Assigned PCP 10/23/14 04/28/18 Leigh Tuttle PA-C [address] [place] [address] Assigned PCP 10/23/14 07/29/20 Tonya Kramer PA-C [facility] [address] [place] [address] Assigned PCP 06/10/21 07/05/22 Leigh Tuttle PA-C [address] [place] [address] Assigned PCP 07/06/22 [place] [address] [place] [address] Assigned Musculoskeletal Provider 10/17/23 documented as of this encounter
== END 2023-11-17 11:33 | disposition home or self-care (01) ==
PROVIDERS: Visit Provider Physician Assistant
DX: Z12.31 Encounter for screening mammogram for malignant neoplasm of breast (principal); R92.333 Mammographic heterogeneous density, bilateral breasts
CPT/HCPCS: 77063; 77067